=== PATIENT | female | born 1980 ===

== ENCOUNTER 2017-01-08 03:08 | Emergency (ER) | payer MEDICAID ==
[2017-01-08 03:28] VITALS: BMI 27.1
[2017-01-08] MEDS ORDERED: Sodium Chloride 0.9% 1,000 ML IV SCH (03:30)
[2017-01-08 03:45] LABS: BASO # 0.02 K/mm3 (0.0-2.0); BASO % 0.3 % (0.0-3.0); EOS # 0.2 (0.0-0.7); EOS % 2.4 % (1.5-5.0); GRAN # 3.92 (1.4-6.5); GRAN % 56.1 % (50.0-68.0); HEMATOCRIT 36.5 % (36.0-48.0); LYMPH # 2.4 (1.2-3.4); LYMPH % 34.2 % (22.0-35.0); MEAN CELL VOLUME 86.3 fl (80.0-105.0); MEAN CORPUSCULAR HEMOGLOBIN 29.8 pg (25.0-35.0); MEAN CORPUSCULAR HGB CONC 34.5 g/dl (31.0-37.0); MEAN PLATELET VOLUME 10.2 fl (7.0-11.0); MONO # 0.5 (0.1-0.6); RED CELL DISTRIBUTION WIDTH 14.2 % (11.5-14.5)
[2017-01-08 03:57] LABS: INR 0.94 (0.93-1.08); PARTIAL THROMBOPLASTIN TIME 25.7 Seconds (23.7-30.8)
[2017-01-08 03:59] LABS: ALB/GLOB RATIO 1.1 (1.1-1.8); ALKALINE PHOSPHATASE 118 U/L (38-126); ALT/SGPT 16 U/L (7-56); AST/SGOT 26 U/L (14-36); BILIRUBIN,TOTAL 0.3 mg/dL (0.2-1.3); BLOOD UREA NITROGEN 11 mg/dL (7-21); CALCIUM 8.8 mg/dL (8.4-10.5); CARBON DIOXIDE 20 mmol/L (21-33); CHLORIDE 106 mmol/L (98-107); GFR AFRICAN-AMERICAN > 60; POTASSIUM 3.7 mmol/L (3.6-5.0); SODIUM 138 mmol/L (132-148); TOTAL PROTEIN 7.3 g/dL (5.8-8.3)
[2017-01-08 04:01] LABS: GLUCOSE,RANDOM 127 mg/dL (70-110)
[2017-01-08] MEDS ORDERED: Morphine 2 mg/ml ISec IVP STA (04:01)
[2017-01-08] MEDS ORDERED: Oxytocin 10 Units/ml Inj IV STA (04:18)
--- NOTE | 2017-01-08 04:47 | ED PDOC ---
Arrival/HPI - General Chief Complaint: Female Genitourinary Time Seen by Provider: 01/08/17 03:24 Historian: Patient - History of Present Illness Narrative History of Present Illness (Text): 01/08/17 03:25 Yisel Diaz is a 36 year old female who presents to the emergency department complaining of heavy vaginal bleeding for a few hours. Patient states that she is having a miscarriage with some cramping. Patient notes that she had an ultrasound 1 week ago with no heart. Patient denies any fever, chills, chest pain, shortness of breath, nausea, vomiting, diarrhea, urinary symptoms, back pain, neck pain, headache, dizziness, or any other complaints. Time/Duration: 4-6 hours Symptom Onset: Gradual Symptom Course: Unchanged Severity Level: Mild Activities at Onset: Light Context: Home Past Medical History - Psychiatric Hx Substance Use: No Family/Social History - Physician Review Nursing Documentation Reviewed: Yes Family/Social History: No Known Family HX Smoking Status: n Hx Alcohol Use: No Hx Substance Use: No Allergies/Home Meds Allergies/Adverse Reactions: Allergies No Known Allergies Allergy (Verified 01/08/17 11:25) Home Medications: Home Meds Medication Instructions Recorded Confirmed Vit Calc,Iron,Folic 1 tab PO DAILY 01/08/17 01/08/17 [ Vitamins] Review of Systems - Physician Review All systems were reviewed & negative as marked: Yes - Review of Systems Constitutional: absent: Fevers, Night Sweats Eyes: absent: Vision Changes ENT: absent: Hearing Changes Respiratory: absent: SOB, Cough Cardiovascular: absent: Chest Pain Gastrointestinal: absent: Abdominal Pain Genitourinary Female: Vaginal Bleeding (heavy). absent: Dysuria Musculoskeletal: absent: Arthralgias Skin: absent: Rash, Pruritis Neurological: absent: Headache, Dizziness Endocrine: absent: Diaphoresis Hemo/Lymphatic: absent: Adenopathy Physical Exam Vital Signs Reviewed: Yes Vital Signs Temp Pulse Resp BP Pulse Ox 01/08/17 06:44 72 18 98/60 L 99 01/08/17 06:40 98.4 F 75 18 98/60 L 01/08/17 06:29 72 18 99/56 L 98 01/08/17 06:27 98.1 F 77 18 105/55 L 01/08/17 06:25 74 18 105/55 L 99 01/08/17 06:10 98.1 F 73 18 101/53 L 01/08/17 06:09 74 18 101/63 100 01/08/17 05:38 69 15 103/52 L 100 01/08/17 05:35 98.2 F 72 18 103/52 L 01/08/17 05:23 60 18 113/45 L 100 01/08/17 04:50 98.2 F 70 12 103/57 L 01/08/17 04:46 76 18 105/74 100 01/08/17 04:30 120/54 L 01/08/17 04:29 98.1 F 67 12 01/08/17 03:55 74 18 103/42 L 100 01/08/17 03:28 98.1 F 88 18 137/84 99 Temperature: Afebrile Blood Pressure: Normal Pulse: Regular Respiratory Rate: Normal Appearance: Positive for: Well-Appearing, Non-Toxic, Comfortable Pain Distress: None Mental Status: Positive for: Alert and Oriented X 3 - Systems Exam Head: Present: Atraumatic, Normocephalic Pupils: Present: PERRL Extroacular Muscles: Present: EOMI Conjunctiva: Present: Normal Mouth: Present: Moist Mucous Membranes Neck: Present: Normal Range of Motion Respiratory/Chest: Present: Clear to Auscultation, Good Air Exchange. No: Respiratory Distress, Accessory Muscle Use Cardiovascular: Present: Regular Rate and Rhythm, Normal S1, S2. No: Murmurs Abdomen: Present: Normal Bowel Sounds. No: Tenderness, Distention, Peritoneal Signs Genitourinary/Pelvic Exam: Present: Vaginal Bleeding, Other (Pelvic exam showed Os open ) Back: Present: Normal Inspection Upper Extremity: Present: Normal Inspection. No: Cyanosis, Edema Lower Extremity: Present: Normal Inspection. No: Edema Neurological: Present: GCS=15, CN II-XII Intact, Speech Normal Skin: Present: Warm, Dry, Normal Color. No: Rashes Psychiatric: Present: Alert, Oriented x 3, Normal Insight, Normal Concentration Medical Decision Making ED Course and Treatment: 01/08/17 03:25 Impression: 36 year old female complaining of heavy vaginal bleeding for a few hours. Differential Diagnosis included but are not limited to: Miscarriage Plan: -- Transvaginal US -- Type and screen -- HCG Urinalysis -- Pitocin and IV Fluids -- Labs -- Reassess and disposition Progress Notes: 01/08/17 05:32 Transvaginal Ultrasound: Creator : Jarrell Walter MD FINDINGS: Gestation: No intrauterine gestational sac. Uterus/cervix: Endometrium: Up to 1.5 cm in thickness, homogeneous. Echogenic material within cervix. Ovaries: Normal ovaries. No adnexal masses. Free fluid: No significant free fluid. IMPRESSION: 1. No intrauterine gestation. DDX: Early IUP, missed , ectopic . 2. Echogenic material within cervix, possibly clot. Clinical correlation is needed. 01/08/17 05:[address] Huston who accepts patient plan to be transferred to [facility]. Spoke to Dr. Manuel Mejia, ER doctor agronomy location manager, who accepts the transfer. packing was placed without further bleeding pt stable for transfer 01/11/17 08:04 - Lab Interpretations Lab Results: 01/08/17 03:22 01/08/17 03:22 Lab Results 01/08/17 03:22: Beta HCG, Quant 813.22 H 01/08/17 03:22: Sodium 138, Potassium 3.7, Chloride 106, Carbon Dioxide 20 L, Anion Gap 16, BUN 11, Creatinine 0.6, Est GFR ( Amer) > 60, Est GFR (Non- Af Amer) > 60, Random Glucose 127 H, Calcium 8.8, Total Bilirubin 0.3, AST 26, ALT 16, Alkaline Phosphatase 118, Total Protein 7.3, Albumin 3.8, Globulin 3.5, Albumin/Globulin Ratio 1.1 01/08/17 03:22: PT 10.1, INR 0.94, APTT 25.7 01/08/17 03:22: WBC 7.0, RBC 4.23, Hgb 12.6, Hct 36.5, MCV 86.3, MCH 29.8, MCHC 34.5, RDW 14.2, Plt Count 319, MPV 10.2, Gran % 56.1, Lymph % (Auto) 34.2, [place] % (Auto) 7.0 H, Eos % (Auto) 2.4, Baso % (Auto) 0.3, Gran # 3.92, Lymph # 2.4, [place] # 0.5, Eos # 0.2, Baso # 0.02 01/08/17 03:21: Blood Type O POSITIVE, Antibody Screen Negative, Crossmatch See Detail, BBK History Checked Patient has bt I have reviewed the lab results: Yes - RAD Interpretation Radiology Orders: 01/08/17 03:29 TRANSVAGINAL [US] Stat - Medication Orders Current Medication Orders: Discontinued Medications Diphenhydramine HCl (Benadryl) 25 mg IVP ONCE ONE Stop: 01/08/17 05:10 Last Admin: 01/08/17 05:09 Dose: 25 mg IVP Administration Document 01/08/17 05:09 RIVERA (Rec: 01/08/17 05:33 RIVERA [id number]) Charges for Administration # of IVP Administrations 1 Diphenhydramine HCl (Benadryl) Confirm Administered Dose 50 mg .ROUTE .STK-MED ONE Stop: 01/08/17 05:12 Last Admin: 01/08/17 05:38 Dose: Sodium Chloride (Sodium Chloride 0.9%) 1,000 mls @ 200 mls/hr IV .Q5H NILSA Last Admin: 01/08/17 03:30 Dose: 200 mls/hr eMAR Start Stop Document 01/08/17 03:30 RIVERA (Rec: 01/08/17 05:19 RIVERA [id number]) Intravenous Solution Start Date 01/08/17 Start Time 03:30 Oxytocin 10 units/ Sodium (Chloride) 1,001 mls @ 100 mls/hr IM .Q10H1M ONE Stop: 01/08/17 14:30 Oxytocin 10 units/ Sodium (Chloride) 1,001 mls @ 100 mls/hr IV .Q10H1M ONE Stop: 01/08/17 14:30 Last Admin: 01/08/17 05:17 Dose: 100 mls/hr eMAR Start Stop Document 01/08/17 05:17 RIVERA (Rec: 01/08/17 05:18 [id number]) Intravenous Solution Start Date 01/08/17 Start Time 05:05 End Date 01/08/17 End time 05:10 Total Infusion Time 5 Methylergonovine Maleate (Methergine) 0.2 mg IM ONCE ONE Stop: 01/08/17 05:07 Last Admin: 01/08/17 05:16 Dose: 0.2 mg IM Administration Charges Document 01/08/17 05:16 RIVERA (Rec: 01/08/17 05:17 RIVERA [id number]) Injection Site MAR Injection Site Left Deltoid Charges for Administration # of IM Administrations 1 - Scribe Statement The provider has reviewed the documentation as recorded by the Anyaiblowell Mcfarland Provider Scribe Attestation: All medical record entries made by the Scribe were at my direction and personally dictated by me. I have reviewed the chart and agree that the record accurately reflects my personal performance of the history, physical exam, medical decision making, and the department course for this patient. I have also personally directed, reviewed, and agree with the discharge instructions and disposition. Disposition/Present on Arrival - Present on Arrival Any Indicators Present on Arrival: No History of DVT/PE: No History of Uncontrolled Diabetes: No Urinary Catheter: No History of Decub. Ulcer: No History Surgical Site Infection Following: None - Disposition Have Diagnosis and Disposition been Completed?: Yes Diagnosis: Excessive vaginal bleeding, Incomplete Disposition: Transfer [facility] Disposition Time: 07:00 Condition: FAIR Referrals: Luma Pires MD [Primary Care Provider] - Follow up with primary Forms: [employer] ([place])
[2017-01-08] MEDS ORDERED: DiphenhydrAMINE 50 mg/ml Inj IVP ONE (05:09)
--- NOTE | 2017-01-08 05:09 | US ---
EXAM: US First Trimester, Transabdominal CLINICAL HISTORY: 36 years old, female; Signs and symptoms; Other: Heavy bleeding with clots/lmp 10/10/16; Additional info: Vaginal bleeding TECHNIQUE: Real-time transabdominal obstetrical ultrasound of the maternal pelvis and a first trimester with image documentation. COMPARISON: No relevant prior studies available. FINDINGS: Gestation: No intrauterine gestational sac. Uterus/cervix: Endometrium: Up to 1.5 cm in thickness, homogeneous. Echogenic material within cervix. Ovaries: Normal ovaries. No adnexal masses. Free fluid: No significant free fluid. IMPRESSION: 1. No intrauterine gestation. DDX: Early IUP, missed , ectopic . 2. Echogenic material within cervix, possibly clot. Clinical correlation is needed. EXAM: US , Transvaginal CLINICAL HISTORY: 36 years old, female; Signs and symptoms; Other: Heavy bleeding with clots/lmp 10/10/16; Additional info: Vaginal bleeding TECHNIQUE: Real-time transvaginal obstetrical ultrasound of the maternal pelvis and a first trimester with image documentation. Transvaginal imaging was used for better evaluation of the fetus and adnexa. COMPARISON: No relevant prior studies available. FINDINGS: Gestation: No intrauterine gestational sac. Uterus/cervix: Endometrium: Up to 1.5 cm in thickness, homogeneous. Echogenic material within cervix. Ovaries: Normal ovaries. No adnexal masses. Free fluid: No significant free fluid.
[2017-01-08] MEDS ORDERED: DiphenhydrAMINE 50 mg/ml Inj ONE (05:11)
[2017-01-08 06:04] VITALS: RESP 18
[2017-01-08 06:46] VITALS: BP 98/60; TEMP 98.4
[2017-01-08 07:08] VITALS: PULSE 72; O2SAT 99
--- NOTE | 2017-01-08 20:57 | CARD ---
APPROVED REPORT EKG Measurement Heart [id number] <Conclusion> Normal sinus rhythm Incomplete right bundle branch block Borderline ECG
== END 2017-01-08 06:55 | disposition short-term general hospital (02) ==
LOC: ED 03:08
DX: O03.1 Delayed or excessive hemorrhage following incomplete spontaneous abortion (principal)
CPT/HCPCS: 36430; 76830; 80053; 84702; 85025; 85610; 85730; 86850; 86900; 86920; 93005; 96372; 96374; 99284; J1200; J2210; J2590; J7040; P9016